=== PATIENT | female | born 1990 | race Caucasian/White ===

== ENCOUNTER 2017-12-18 10:40 | Emergency (ER) | payer SELFPAY ==
[2017-12-18 10:51] VITALS: BP 126/71; PULSE 58; TEMP 98.9; BMI 32.1
[2017-12-18] MEDS ORDERED: KETOROLAC TROMETHAMINE 60 MG/2 ML VIAL IM ONE (11:29)
--- NOTE | 2017-12-18 11:38 | PDOC ---
History of Present Illness - General Chief Complaint: Pain, Acute Stated Complaint: NECK PAIN Time Seen by Provider: 12/18/17 11:27 - History of Present Illness Initial Comments: 27-year-old female without comorbidities presents for evaluation of left-sided neck pain and spasm 1 day. She self medicated with hydrocodone given to her by her father, she complains of left-sided neck pain exacerbated with motion relieved with rest and free of radiation. No loss of bowel or bladder function. 12/18/17 11:32 Past History - Past Medical History Allergies/Adverse Reactions: Allergies Allergy/AdvReac Type Severity Reaction Status Date / Time No Known Allergies Allergy Verified 12/18/17 10:49 Home Medications: Ambulatory Orders Cyclobenzaprine HCl [Flexeril 10 mg] 10 mg PO HS PRN #10 tablet 12/18/17 Ibuprofen [Motrin -] 600 mg PO TID #30 tablet 12/18/17 COPD: No - Reproductive History (#): 1 Para: 0 Cervical CA: No Dysfunctional Uterine Bleeding: No Ectopic : No Endometrial CA: No Polycystic Ovaries: No Tubal Ligation: No - Suicide/Smoking/Psychosocial Hx Smoking Status: No Smoking History: Never smoked Have you smoked in the past 12 months: No Number of Cigarettes Smoked Daily: 0 Information on smoking cessation initiated: No Hx Alcohol Use: No Drug/Substance Use Hx: No Substance Use Type: None Review of Systems - Review of Systems Musculoskeletal: Yes: Neck Pain All Other Systems: Reviewed and Negative *Physical Exam - Vital Signs Last Vital Signs Temp Pulse Resp BP Pulse Ox 98.9 F 58 L 18 126/71 100 12/18/17 10:49 12/18/17 10:49 12/18/17 10:49 12/18/17 10:49 12/18/17 10:49 - Physical Exam Comments: Cervical spine skin color and temperature are normal. She holds her neck rotated and flexed to the right any motion causes pain. She has no adenopathy moderate left-sided paracervical musculature spasm and tenderness. No midline tenderness. 5 out of 5 strength in bilateral lower extremities. She is unable to tolerate dispelling maneuver or passive range of motion. She has no gross sensorimotor deficits she is neurovascular intact. 12/18/17 11:33 Medical Decision Making - Medical Decision Making Cervical muscle spasm, I'll treat her with Toradol the emergency room and send her home with Motrin and Flexeril with spine surgery follow-up. 12/18/17 11:38 12/18/17 11:43 Denies *DC/Admit/Observation/Transfer Diagnosis at time of Disposition: Cervical strain, acute - Discharge Dispostion Disposition: HOME Condition at time of disposition: Stable Decision to Admit order: No - Referrals Referrals: Marcello Zhang MD [Primary Care Provider] - Feng Vance MD [Staff Physician] - - Patient Instructions Printed Discharge Instructions: DI for Cervical Muscle Strain Additional Instructions: Please take the medication as directed. The anti-inflammatories 3 times a day with food. Please discontinue the medication if about his stomach. Muscle relaxer will make you sleepy it's one tablet at nighttime. I've also given you a spine surgeon. Follow-up with for further evaluation and treatment options. Return to the emergency room should symptoms worsen ago unresolved. - Post Discharge Activity
[2017-12-18] MEDS ORDERED: KETOROLAC TROMETHAMINE 60 MG/2 ML VIAL ONE (11:42)
== END 2017-12-18 11:48 | disposition home or self-care (01) ==
LOC: JERFT 10:40
PROC: 3E0233Z Introduction of Anti-inflammatory into Muscle, Percutaneous Approach (ICD-10-PCS; principal; 2017-12-18)
DX: S16.1XXA Strain of muscle, fascia and tendon at neck level, initial encounter (principal); X58.XXXA Exposure to other specified factors, initial encounter; Y93.89 Activity, other specified; Y92.038 Other place in apartment as the place of occurrence of the external cause; Y99.8 Other external cause status
CPT/HCPCS: 99281-25

== ENCOUNTER 2023-02-13 11:03 | Emergency (ER) | payer SELFPAY ==
[2023-02-13 11:48] VITALS: BP 127/91; PULSE 55; RESP 18; TEMP 98.3; BMI 35.6
[2023-02-13 13:38] LABS: BASO % 0.9 % (0-2.0); EOS % 1.1 % (0-4.5); HEMATOCRIT 44.7 % (32.4-45.2); HEMOGLOBIN 15.3 GM/dL (10.7-15.3); LYMPH % 34.4 % (8-40); MCHC 34.2 g/dl (32.0-36.0); MEAN PLT VOLUME 7.1 fl (7.5-11.1); MONO % 6.8 % (3.8-10.2); NEUT % 56.8 % (42.8-82.8); PLATELET COUNT 373 10^3/uL (134-434); RBC 5.46 M/mm3 (3.60-5.2); RDW 12.8 % (11.6-15.6); WHITE BLOOD COUNT 8.6 K/mm3 (4.0-10.0)
[2023-02-13 13:41] LABS: EPI CELLS 23 /uL (0-25.1); HYALINE CASTS 0 /uL (0-3.1); PH,URINE 5.5 (5.0-8.0); URINE APPEARANCE CLEAR; URINE BACTERIA 48 /uL (0-1359); URINE BILIRUBIN NEGATIVE (NEGATIVE); URINE COLOR YELLOW; URINE GLUCOSE (UA) NEGATIVE (NEGATIVE); URINE KETONE NEGATIVE (NEGATIVE); URINE LEUK ESTERASE TRACE (NEGATIVE); URINE NITRITE NEGATIVE (NEGATIVE); URINE PROTEIN NEGATIVE (NEGATIVE); URINE RBC 37 /uL (0-23.9); URINE UROBILINOGEN 0.2 mg/dL (0.2-1.0); URINE WBC 6 /uL (0-25.8)
[2023-02-13 13:44] LABS: HCG,QUALITATIVE URINE Negative
[2023-02-13 13:57] LABS: POTASSIUM 4.2 mmol/L (3.5-5.1)
[2023-02-13 13:59] LABS: CALCIUM 8.9 mg/dL (8.5-10.1)
[2023-02-13 14:00] LABS: BLOOD UREA NITROGEN 11.4 mg/dL (7-18); MAGNESIUM 2.2 mg/dL (1.8-2.4)
[2023-02-13 14:02] LABS: CREATININE 0.7 mg/dL (0.55-1.3)
[2023-02-13 14:04] LABS: BILIRUBIN,TOTAL 0.7 mg/dL (0.2-1); TOT PROT 7.9 g/dl (6.4-8.2)
== END 2023-02-13 16:01 | disposition home or self-care (01) ==
LOC: JER 11:03
DX: R10.11 Right upper quadrant pain (principal); R11.0 Nausea; R68.83 Chills (without fever); M54.9 Dorsalgia, unspecified; K80.20 Calculus of gallbladder without cholecystitis without obstruction
CPT/HCPCS: 36415; 76705-TC; 80053; 81003; 83690; 83735; 84703; 85025; 87086; 99284-25